=== PATIENT | female | born 1985 | race Caucasian/White ===

== ENCOUNTER 2021-10-19 18:07 | Emergency (ER) | payer MEDICAID ==
[~2021-10-19] VITALS: Ht 172.7 cm; Wt 95.3 kg
[2021-10-19 18:15] VITALS: BP_SYST 125
--- NOTE | 2021-10-19 18:19 | NUR ---
TRIAGED PT AND PLACED IN WAITING ROOM UNTIL BED BECOMES AVAILABLE.
--- NOTE | 2021-10-19 18:21 | NUR ---
URINE CUP GIVEN TO PT TO PROVIDE URINE SAMPLE.
[2021-10-19] MEDS ORDERED: IBUP-1969 PO (18:54)
[2021-10-19] MEDS ORDERED: METH-634 PO (18:54)
[2021-10-19] MEDS ORDERED: HYDR-3917 PO (18:54)
[2021-10-19] MEDS ORDERED: KETOROLAC TROMETHAMINE 60 MG/2 ML VIAL IM ONE (19:00)
--- NOTE | 2021-10-19 19:05 | NUR ---
RECEIVED PT FROM JAMESON WILD. PT HAS C/O BACK PAIN. PT IS AAOX4. RESP E/U. ON R/A. NORMAL S1S2. DENIES N/V/D/C. SKIN INTACT, WARM, NO EDEMA. SIDERAILS UP X2.
--- NOTE | 2021-10-19 19:18 | NUR ---
ENDORSED ALL CARE TO JAMESON JIN. ALL QUESTIONS AND CONCERNS ADDRESSED.
[2021-10-19 19:50] VITALS: BP_SYST 120
== END 2021-10-19 19:50 | disposition home or self-care (01) ==
LOC: SED 18:07
DX: M54.50 Low back pain, unspecified (principal); G89.29 Other chronic pain; Z79.899 Other long term (current) drug therapy
CPT/HCPCS: 99283; 81002; 81025; 96372; J1885

== ENCOUNTER 2022-09-18 12:42 | Emergency (ER) | payer MEDICAID ==
[~2022-09-18] VITALS: Ht 172.7 cm; Wt 95.3 kg
[~2022-09-18 12:42] MED LIST: HYDR-3917 PO; IBUP-1969 PO; METH-634 PO
[2022-09-18 12:48] VITALS: BP_SYST 121; PULSE 94; RESP 18; TEMP 98; O2SAT 98
[2022-09-18] MEDS ORDERED: LORazepam 1 MG TABLET PO ONE (13:15)
[2022-09-18] MEDS ORDERED: PRO20 PO (13:53)
[2022-09-18] MEDS ORDERED: ALPR1TAB2 PO (13:53)
[2022-09-18] MEDS ORDERED: WELSR150 PO (13:53)
[2022-09-18 14:04] VITALS: BP_SYST 121; PULSE 94; RESP 18; TEMP 98; O2SAT 98
== END 2022-09-18 14:03 | disposition home or self-care (01) ==
LOC: SED 12:42
DX: F41.9 Anxiety disorder, unspecified (principal); Z79.899 Other long term (current) drug therapy
CPT/HCPCS: 99283